=== PATIENT | female | born 1995 | race Caucasian/White ===

== ENCOUNTER 2017-08-09 18:35 | Outpatient (CLI) | payer OTHER | END 2017-08-09 21:50 | disposition home or self-care (01) | LOC: OBT 18:35 → L-D 18:37 → OBT 21:50 | DX: O62.9 Abnormality of forces of labor, unspecified (principal); Z3A.38 38 weeks gestation of pregnancy | CPT/HCPCS: 76818 ==

== ENCOUNTER 2017-08-19 02:22 | Outpatient (CLI) | payer OTHER | END 2017-08-19 06:00 | disposition home or self-care (01) | LOC: OBT 02:22 → L-D 02:23 → OBT 06:00 | DX: O62.9 Abnormality of forces of labor, unspecified (principal); Z3A.38 38 weeks gestation of pregnancy | CPT/HCPCS: Z7500 ==